=== PATIENT | male | born 1950 | race Caucasian/White ===

== ENCOUNTER 2022-03-22 13:08 | Emergency (ER) | payer MEDICARE, OTHER ==
[2022-03-22 14:13] LABS: ANION GAP 9.2 meq/L (7-15)
[2022-03-22] MEDS ORDERED: 50% Dextrose in Water 50 ML Syringe IVPUSH PRN ×2 (14:57→15:11)
[2022-03-22] MEDS ORDERED: Glucagon,Human Recombinant 1 MG Vial IM PRN ×2 (14:57→15:11)
[2022-03-22] MEDS ORDERED: Insulin Lispro 100 Units/ML 3 ML Vial SUBCUT ONE ×2 (14:59→15:11)
[2022-03-22 16:52] LABS: CORONAVIRUS COVID-19 NAA NEGATIVE (NEGATIVE); RESPIRATORY SYNCYTIAL VIR NAA NEGATIVE (NEGATIVE)
== END 2022-03-22 16:35 ==
LOC: MERGE 13:08 → LL.ED 13:08
DX: R41.81 Age-related cognitive decline (principal); E78.00 Pure hypercholesterolemia, unspecified; I10 Essential (primary) hypertension; M10.9 Gout, unspecified; Z91.14 Patient's other noncompliance with medication regimen; E11.42 Type 2 diabetes mellitus with diabetic polyneuropathy; Z79.82 Long term (current) use of aspirin; Z79.4 Long term (current) use of insulin; Z79.899 Other long term (current) drug therapy; Z20.822 Contact with and (suspected) exposure to COVID-19
CPT/HCPCS: 0241U; 36415; 80053; 81003; 85025; 99284; J1815-GY

== ENCOUNTER 2022-10-23 11:06 | Emergency (ER) | payer OTHER, MEDICARE ==
[2022-10-23 11:42] LABS: ALANINE AMINOTRANSFERASE,ALT 15 U/L (12-78); ALBUMIN 4.1 g/dL (3.4-5.0); ALKALINE PHOSPHATASE 93 IU/L (46-116); ASPARTATE AMNIOTRANSFERASE,AST 16 U/L (15-37); BILIRUBIN TOTAL 0.6 mg/dL (0.2-1.0); BLOOD UREA NITROGEN,BUN 32 mg/dL (7-18); CALCIUM 8.8 mg/dL (8.5-10.1); CHLORIDE,CL 102 mmol/L (98-107); CREATININE 1.29 mg/dL (0.51-1.17); GLUCOSE RANDOM 263 mg/dL (70-99); POTASSIUM,K 4.2 mmol/L (3.5-5.1); PROTEIN TOTAL,TP 7.2 g/dL (6.4-8.2); SODIUM,NA 139 mmol/L (136-145)
[2022-10-23 11:48] LABS: ESTIMATED GFR 58 mL/min (>=60)
[2022-10-23 11:52] LABS: BASOPHILS ABSOLUTE AUTO 0.04 K/uL (0.00-0.20); BASOPHILS PERCENT AUTO 0.4 % (0.0-2.0); EOSINOPHILS ABSOLUTE AUTO 0.18 K/uL (0.00-0.50); HEMATOCRIT 42.8 % (39.0-49.0); HEMOGLOBIN 14.2 g/dL (13.1-16.8); LYMPHOCYTES ABSOLUTE AUTO 2.37 K/uL (0.50-3.50); LYMPHOCYTES PERCENT AUTO 25.7 % (10.0-50.0); MEAN CORPUSCULAR HEMOGLOBIN 29.4 pg (28.2-33.3); MEAN CORPUSCULAR HGB CONC 33.2 g/dL (31.7-36.0); MEAN CORPUSCULAR VOLUME 88.6 fL (84.0-98.0); MONOCYTES ABSOLUTE AUTO 0.86 K/uL (0.00-1.00); MONOCYTES PERCENT AUTO 9.3 % (2.0-14.0); NEUTROPHILS ABSOLUTE AUTO 5.78 K/uL (1.40-7.00); NEUTROPHILS PERCENT AUTO 62.6 % (45.0-80.0); PLATELET COUNT,PLT 205 K/uL (150-350); RED BLOOD CELL COUNT 4.83 M/uL (4.33-5.41); RED CELL DISTRIBUTION WIDTH 14.2 % (11.2-14.1); WHITE BLOOD CELL COUNT,WBC 9.2 K/uL (4.0-10.2)
[2022-10-23 12:01] LABS: PROTHROMBIN TIME 9.9 SEC (9.0-11.1)
[2022-10-23] MEDS: Diphtheria,Pertussis(Acell),Tetanus Vaccine 0.5 ML Syringe IM ONE (13:20)
[2022-10-23] MEDS: Bacitracin Oint 1 GM U/D Packet TOP ONE (13:20)
== END 2022-10-23 13:51 | disposition home or self-care (01) ==
LOC: LL.ED 11:06
DX: S02.832A Fracture of medial orbital wall, left side, initial encounter for closed fracture (principal); S01.81XA Laceration without foreign body of other part of head, initial encounter; H57.89 Other specified disorders of eye and adnexa; I10 Essential (primary) hypertension; M10.9 Gout, unspecified; E11.42 Type 2 diabetes mellitus with diabetic polyneuropathy; Z23 Encounter for immunization; Z79.82 Long term (current) use of aspirin; Z79.4 Long term (current) use of insulin; Z79.899 Other long term (current) drug therapy; W01.0XXA Fall on same level from slipping, tripping and stumbling without subsequent striking against object, initial encounter
CPT/HCPCS: 36415; 70450; 70486; 80053; 85025; 85610; 90471; 90715; 99284; 99284-25